=== PATIENT | female | born 1980 | race Caucasian/White ===

== ENCOUNTER 2021-04-20 16:22 | Inpatient (IN) | payer OTHER ==
[2021-04-20] MEDS ORDERED: Ketorolac Tromethamine 30 MG/ML VIAL ONE (17:10)
[2021-04-20] MEDS ORDERED: Promethazine HCl 25 MG/ML VIAL ONE (17:10)
[2021-04-20] MEDS ORDERED: Dexamethasone 10 MG/ML VIAL ONE (17:10)
[2021-04-20 17:53] LABS: #Neutrophils 1.9 10x3/uL (1.5-8.4); %Lymphocytes 7.6 % (18.0-47.0); %Monocytes 1.9 % (0.0-10.0); Hemoglobin 12.3 g/dL (12.0-15.5); Mean Corpuscular HGB CONC 33.9 g/dL (32.0-36.0); Mean Corpuscular Hemoglobin 30.2 pg (27.0-33.0); Mean Corpuscular Volume 89.2 fl (81.6-98.3); Mean Platelet Volume 9.9 fl (7.4-10.4); Platelet Count 142 10x3/uL (150-450); RBC Distribution Width 11.9 % (11.5-14.5); Red Blood Cell (RBC) Count 4.07 10x6/uL (3.90-5.03); White Blood Cell (WBC) Count 2.1 10x3/uL (3.5-10.5)
[2021-04-20 17:59] LABS: ALT (SGPT) 37 U/L (8-55); AST (SGOT) 41 U/L (5-34); Albumin 3.3 g/dL (3.5-5.0); Alkaline Phosphatase 85 U/L (40-110); Anion Gap 12 mmol/L (10-20); BUN (Urea Nitrogen) 11 mg/dL (7.0-18.7); Bilirubin, Total 0.3 mg/dL (0.2-1.2); Calc. Creatinine Clearance 0 mL/min (70-130); Calcium 7.9 mg/dL (7.8-10.44); Carbon Dioxide 19 mmol/L (22-29); Chloride 107 mmol/L (98-107); Globulin 2.5 g/dL (2.4-3.5); Glucose 89 mg/dL (70-105); Potassium 3.7 mmol/L (3.5-5.1); Protein, Total 5.8 g/dL (6.0-8.3); Sodium 134 mmol/L (136-145)
[2021-04-20] MEDS ORDERED: Acetaminophen 500 MG TAB ONE (18:41)
[2021-04-20] MEDS ORDERED: Acetaminophen 325 MG TAB PO PRN (20:51)
[2021-04-20] MEDS ORDERED: NS 0.9% w/ 20 MEQ KCL 1,000 ML/1,000 ML BAG IV SCH (21:00)
[2021-04-20] MEDS ORDERED: Cholecalciferol 1,000 UNITS (25 MCG) TAB PO SCH (21:00)
[2021-04-20 21:13] LABS: BHCG - Serum Negative (NEGATIVE); Pregs Control Background? CLEAR/WHITE (CLR/WHITE); Pregs Control Bar Appear? YES (CONTROL BAR)
[2021-04-20] MEDS ORDERED: Ascorbic Acid 500 mg Chewable Tablet PO SCH (23:45)
[2021-04-20] MEDS ORDERED: Aspirin 81 mg Enteric Coated Tablet PO SCH (23:45)
[2021-04-21] MEDS ORDERED: NS 0.9% w/ 20 MEQ KCL 1,000 ML ONE (00:23)
[2021-04-21 01:02] VITALS: BMI 27.4
[2021-04-21] MEDS ORDERED: FLU VACC QS2021-22(6MOS UP)/PF 60 MCG/0.5 ML SYRINGE IM ONE (01:15)
[2021-04-21 04:25] LABS: #Neutrophils 1.6 10x3/uL (1.5-8.4); %Lymphocytes 10.2 % (18.0-47.0); %Monocytes 1.6 % (0.0-10.0); %Neutrophils 87.7 % (40.0-75.0); Hemoglobin 12.9 g/dL (12.0-15.5); Mean Corpuscular HGB CONC 33.3 g/dL (32.0-36.0); Mean Corpuscular Hemoglobin 29.7 pg (27.0-33.0); Mean Corpuscular Volume 89.2 fl (81.6-98.3); Mean Platelet Volume 9.7 fl (7.4-10.4); Platelet Count 153 10x3/uL (150-450); RBC Distribution Width 11.9 % (11.5-14.5); Red Blood Cell (RBC) Count 4.34 10x6/uL (3.90-5.03); White Blood Cell (WBC) Count 1.9 10x3/uL (3.5-10.5)
[2021-04-21 04:43] LABS: Anion Gap 14 mmol/L (10-20); BUN (Urea Nitrogen) 14 mg/dL (7.0-18.7); CRP (Inflammatory) 20.79 mg/dL (= or < 0.5); Calc. Creatinine Clearance 145 mL/min (70-130); Calcium 7.9 mg/dL (7.8-10.44); Carbon Dioxide 19 mmol/L (22-29); Chloride 110 mmol/L (98-107); Glucose 117 mg/dL (70-105); Potassium 4.1 mmol/L (3.5-5.1); Sodium 139 mmol/L (136-145)
[2021-04-21] MEDS ORDERED: Dexamethasone 20 MG/5 ML VIAL SLOW IVP SCH (09:00)
[2021-04-21] MEDS: Ipratropium Bromide 0.06% Nasal Inhaler 15ml EA NARE SCH ×3 (09:00→17:15)
[2021-04-21] MEDS: Mometasone Furoate 120 PUFF 220 MCG INH SCH ×2 (09:06→20:41)
[2021-04-21] MEDS ORDERED: REMDESIVIR 200 MG in Sodium Chloride 0.9% 250 ML 210 ML IV SCH (09:30)
[2021-04-21] MEDS: Zinc Sulfate 220 MG CAP PO SCH (09:33)
[2021-04-21] MEDS: Guaifenesin DM 100-10/5 ML UDCUP PO PRN (09:33)
[2021-04-21] MEDS: Benzonatate 100 MG CAP PO PRN ×2 (09:33→19:44)
[2021-04-21] MEDS: Aspirin 81 mg Enteric Coated Tablet PO SCH (09:33)
[2021-04-21] MEDS: Ascorbic Acid 500 mg Chewable Tablet PO SCH (09:34)
[2021-04-21] MEDS: Cholecalciferol 1,000 UNITS (25 MCG) TAB PO SCH (09:34)
[2021-04-21] MEDS: Enoxaparin Sodium 40 MG/0.4 ML SYRINGE SC SCH (09:34)
[2021-04-21] MEDS ORDERED: diphenhydrAMINE 25 MG CAP PO PRN (11:04)
[2021-04-21] MEDS ORDERED: Cepastat Lozenges 1 LOZ PO PRN (11:04)
[2021-04-21] MEDS ORDERED: Acetaminophen 500 MG TAB PO PRN (11:04)
[2021-04-21] MEDS ORDERED: Ondansetron PF 4 MG/2 ML Vial IVP PRN (11:04)
[2021-04-21] MEDS ORDERED: Loratadine 10 MG TAB PO PRN (11:04)
[2021-04-21] MEDS ORDERED: Senokot S 8.6-50 MG TAB PO PRN (11:04)
[2021-04-21] MEDS ORDERED: Ondansetron ODT 4 MG TAB PO PRN (11:04)
[2021-04-21] MEDS ORDERED: Loperamide HCl 2 MG CAP PO PRN (11:04)
[2021-04-21] MEDS ORDERED: hydrALAZINE 20 MG/ML VIAL SLOW IVP PRN (11:04)
[2021-04-21] MEDS ORDERED: Labetalol HCl 100 MG/20 ML VIAL SLOW IVP PRN (11:04)
[2021-04-21] MEDS ORDERED: Sodium Chloride 0.65% Nasal 44 ML BOT EA NARE PRN (11:04)
[2021-04-21] MEDS ORDERED: Tiotropium Bromide 4 GM INHALER IH SCH (11:30)
[2021-04-21] MEDS ORDERED: [UNRECOGNIZED DRUG - OTHER] IVPB PRN (12:07)
[2021-04-21] MEDS ORDERED: Furosemide 40 MG/4 ML VIAL SLOW IVP SCH (12:15)
[2021-04-21] MEDS: HYDROcodone/Acetaminophen 5/325 mg Tablet PO SCH ×2 (13:05→13:24)
[2021-04-21 13:23] LABS: Actual Bicarbonate (HCO3a) 18.2 mEq/L (22-28); Base Excess (BEa) -4.5 mEq/L (-2.0 to +3.0); CO2 Tension 27.4 mmHg (35.0-45.0); Calcium, Ionized (arterial) 1.09 mmol/L (1.12-1.30); Carboxyhemoglobin (COHb) 0.1 gm% (0.0-3.0); Hemoglobin (Hb) 13.7 g/dL (12.0-16.0); O2 Tension (PaO2), arterial 193.5 mmHg (80.0-100.0); Potassium - ABG Lab 3.9 mmol/L (3.70-5.30); Puncture Site RRA; pH, Arterial 7.44 (7.35-7.45)
[2021-04-21] MEDS: Morphine 4 MG/ML VIAL SLOW IVP PRN ×3 (15:30→23:53)
[2021-04-21 16:02] LABS: Legionella Urinary Ag Negative (Negative); Strep pneumo Urine Ag NEGATIVE (NEGATIVE)
[2021-04-21] MEDS: Dexamethasone 20 MG/5 ML VIAL SLOW IVP SCH (19:40)
[2021-04-21] MEDS: Promethazine HCl 12.5 MG in Sodium Chloride 0.9% 50 ML IVPB PRN (20:05)
[2021-04-22 03:40] LABS: #Monocytes 0.1 10x3/uL (0.0-1.1); %Monocytes 4.2 % (0.0-10.0); %Neutrophils 89.2 % (40.0-75.0); Mean Corpuscular HGB CONC 34.1 g/dL (32.0-36.0); Mean Corpuscular Hemoglobin 30.2 pg (27.0-33.0); Mean Corpuscular Volume 88.6 fl (81.6-98.3); Mean Platelet Volume 9.5 fl (7.4-10.4); Platelet Count 226 10x3/uL (150-450); White Blood Cell (WBC) Count 3.3 10x3/uL (3.5-10.5)
[2021-04-22 03:48] LABS: ALT (SGPT) 30 U/L (8-55); AST (SGOT) 29 U/L (5-34); Albumin 3.3 g/dL (3.5-5.0); Alkaline Phosphatase 82 U/L (40-110); Anion Gap 15 mmol/L (10-20); BUN (Urea Nitrogen) 19 mg/dL (7.0-18.7); Bilirubin, Direct 0.1 mg/dL (0.1-0.3); Bilirubin, Total 0.3 mg/dL (0.2-1.2); Calc. Creatinine Clearance 131 mL/min (70-130); Calcium 8.1 mg/dL (7.8-10.44); Carbon Dioxide 22 mmol/L (22-29); Chloride 107 mmol/L (98-107); Globulin 2.5 g/dL (2.4-3.5); Glucose 128 mg/dL (70-105); Potassium 3.8 mmol/L (3.5-5.1); Protein, Total 5.8 g/dL (6.0-8.3); Sodium 140 mmol/L (136-145)
[2021-04-22 03:54] LABS: Magnesium 2.4 mg/dL (1.6-2.6); Phosphorus 2.6 mg/dL (2.3-4.7)
[2021-04-22] MEDS: Morphine 4 MG/ML VIAL SLOW IVP PRN ×4 (04:48→16:38)
[2021-04-22] MEDS: Mometasone Furoate 120 PUFF 220 MCG INH SCH ×2 (07:30→19:50)
[2021-04-22] MEDS: Promethazine HCl 12.5 MG in Sodium Chloride 0.9% 50 ML IVPB PRN ×2 (07:37→16:56)
[2021-04-22] MEDS: Dexamethasone 20 MG/5 ML VIAL SLOW IVP SCH ×2 (07:55→20:53)
[2021-04-22] MEDS: Enoxaparin Sodium 40 MG/0.4 ML SYRINGE SC SCH (07:55)
[2021-04-22] MEDS: Zinc Sulfate 220 MG CAP PO SCH (07:56)
[2021-04-22] MEDS: Ascorbic Acid 500 mg Chewable Tablet PO SCH (07:56)
[2021-04-22] MEDS: Cholecalciferol 1,000 UNITS (25 MCG) TAB PO SCH (07:56)
[2021-04-22] MEDS: Benzonatate 100 MG CAP PO PRN ×2 (07:57→16:39)
[2021-04-22] MEDS: Ipratropium Bromide 0.06% Nasal Inhaler 15ml EA NARE SCH (08:13)
[2021-04-22] MEDS: Tiotropium Bromide 4 GM INHALER IH SCH (08:13)
[2021-04-22 08:30] LABS: Actual Bicarbonate (HCO3a) 24.4 mEq/L (22-28); Base Excess (BEa) 0.3 mEq/L (-2.0 to +3.0); CO2 Tension 37.8 mmHg (35.0-45.0); Calcium, Ionized (arterial) 1.12 mmol/L (1.12-1.30); Carboxyhemoglobin (COHb) 0.3 gm% (0.0-3.0); Hemoglobin (Hb) 13.5 g/dL (12.0-16.0); O2 Tension (PaO2), arterial 66.8 mmHg (80.0-100.0); Potassium - ABG Lab 3.9 mmol/L (3.70-5.30); Puncture Site LRA; pH, Arterial 7.43 (7.35-7.45)
[2021-04-22] MEDS: Aspirin 81 mg Enteric Coated Tablet PO SCH (09:11)
[2021-04-22] MEDS: REMDESIVIR 100 MG in Sodium Chloride 0.9% 250 ML 230 ML IV SCH (11:14)
[2021-04-22] MEDS: BARICITINIB 2 MG TAB PO SCH (16:41)
[2021-04-22] MEDS: Ventolin HFA Inhaler 60 PUFF INHALER INH PRN (21:45)
[2021-04-23] MEDS: Morphine 4 MG/ML VIAL SLOW IVP PRN ×3 (01:38→16:07)
[2021-04-23] MEDS: Promethazine 25 MG TAB PO PRN ×2 (01:38→18:54)
[2021-04-23 03:48] LABS: #Monocytes 0.2 10x3/uL (0.0-1.1); #Neutrophils 1.8 10x3/uL (1.5-8.4); %Lymphocytes 8.6 % (18.0-47.0); %Monocytes 7.1 % (0.0-10.0); %Neutrophils 83.8 % (40.0-75.0); Hemoglobin 12.3 g/dL (12.0-15.5); Mean Corpuscular HGB CONC 33.3 g/dL (32.0-36.0); Mean Corpuscular Hemoglobin 30.1 pg (27.0-33.0); Mean Corpuscular Volume 90.2 fl (81.6-98.3); Mean Platelet Volume 9.4 fl (7.4-10.4); Platelet Count 245 10x3/uL (150-450); RBC Distribution Width 11.8 % (11.5-14.5); Red Blood Cell (RBC) Count 4.09 10x6/uL (3.90-5.03); White Blood Cell (WBC) Count 2.1 10x3/uL (3.5-10.5)
[2021-04-23 04:11] LABS: ALT (SGPT) 24 U/L (8-55); AST (SGOT) 18 U/L (5-34); Albumin 3.3 g/dL (3.5-5.0); Alkaline Phosphatase 69 U/L (40-110); Anion Gap 13 mmol/L (10-20); BUN (Urea Nitrogen) 22 mg/dL (7.0-18.7); Bilirubin, Direct 0.2 mg/dL (0.1-0.3); Bilirubin, Total 0.4 mg/dL (0.2-1.2); Calc. Creatinine Clearance 150 mL/min (70-130); Calcium 7.7 mg/dL (7.8-10.44); Carbon Dioxide 26 mmol/L (22-29); Chloride 106 mmol/L (98-107); Globulin 1.7 g/dL (2.4-3.5); Glucose 139 mg/dL (70-105); Potassium 4.4 mmol/L (3.5-5.1); Sodium 141 mmol/L (136-145)
[2021-04-23] MEDS: Mometasone Furoate 120 PUFF 220 MCG INH SCH ×2 (08:05→19:53)
[2021-04-23] MEDS: Ascorbic Acid 500 mg Chewable Tablet PO SCH (09:42)
[2021-04-23] MEDS: Cholecalciferol 1,000 UNITS (25 MCG) TAB PO SCH (09:42)
[2021-04-23] MEDS: Aspirin 81 mg Enteric Coated Tablet PO SCH (09:42)
[2021-04-23] MEDS: Zinc Sulfate 220 MG CAP PO SCH (09:42)
[2021-04-23] MEDS: Enoxaparin Sodium 40 MG/0.4 ML SYRINGE SC SCH (09:43)
[2021-04-23] MEDS: Dexamethasone 20 MG/5 ML VIAL SLOW IVP SCH (09:43)
[2021-04-23] MEDS: REMDESIVIR 100 MG in Sodium Chloride 0.9% 250 ML 230 ML IV SCH (09:44)
[2021-04-23] MEDS: Tiotropium Bromide 4 GM INHALER IH SCH (10:16)
[2021-04-23] MEDS: Promethazine HCl 12.5 MG in Sodium Chloride 0.9% 50 ML IVPB PRN (10:46)
[2021-04-23] MEDS: Benzonatate 100 MG CAP PO PRN ×2 (10:47→18:30)
[2021-04-23] MEDS: Ipratropium Bromide 0.06% Nasal Inhaler 15ml EA NARE SCH ×4 (11:27→17:14)
[2021-04-23] MEDS: BARICITINIB 2 MG TAB PO SCH (15:49)
[2021-04-23] MEDS ORDERED: Acetaminophen 500 MG TAB PO PRN (16:24)
[2021-04-23] MEDS: Morphine IR 10 MG/5 ML UDCUP PO PRN (20:48)
[2021-04-23] MEDS: Escitalopram Oxalate 10 mg Tablet PO SCH (20:49)
[2021-04-24 04:25] LABS: #Monocytes 0.2 10x3/uL (0.0-1.1); %Basophils 0.2 % (0.0-2.0); %Lymphocytes 5.3 % (18.0-47.0); %Monocytes 5.1 % (0.0-10.0); %Neutrophils 88.7 % (40.0-75.0); Hemoglobin 12.8 g/dL (12.0-15.5); Mean Corpuscular HGB CONC 32.7 g/dL (32.0-36.0); Mean Corpuscular Hemoglobin 29.7 pg (27.0-33.0); Mean Platelet Volume 9.5 fl (7.4-10.4); Platelet Count 258 10x3/uL (150-450); RBC Distribution Width 11.5 % (11.5-14.5); Red Blood Cell (RBC) Count 4.31 10x6/uL (3.90-5.03); White Blood Cell (WBC) Count 4.6 10x3/uL (3.5-10.5)
[2021-04-24 04:48] LABS: ALT (SGPT) 20 U/L (8-55); AST (SGOT) 15 U/L (5-34); Albumin 3.2 g/dL (3.5-5.0); Alkaline Phosphatase 61 U/L (40-110); Anion Gap 13 mmol/L (10-20); BUN (Urea Nitrogen) 24 mg/dL (7.0-18.7); Bilirubin, Direct 0.2 mg/dL (0.1-0.3); Bilirubin, Total 0.5 mg/dL (0.2-1.2); Calc. Creatinine Clearance 153 mL/min (70-130); Carbon Dioxide 26 mmol/L (22-29); Chloride 105 mmol/L (98-107); Globulin 2.1 g/dL (2.4-3.5); Glucose 102 mg/dL (70-105); Potassium 4.2 mmol/L (3.5-5.1); Protein, Total 5.3 g/dL (6.0-8.3); Sodium 140 mmol/L (136-145)
[2021-04-24] MEDS: Morphine IR 10 MG/5 ML UDCUP PO PRN (05:04)
[2021-04-24] MEDS: Mometasone Furoate 120 PUFF 220 MCG INH SCH ×2 (07:48→19:59)
[2021-04-24] MEDS: Cholecalciferol 1,000 UNITS (25 MCG) TAB PO SCH (08:22)
[2021-04-24] MEDS: Aspirin 81 mg Enteric Coated Tablet PO SCH (08:22)
[2021-04-24] MEDS: Ascorbic Acid 500 mg Chewable Tablet PO SCH (08:22)
[2021-04-24] MEDS: Zinc Sulfate 220 MG CAP PO SCH (08:22)
[2021-04-24] MEDS: Ipratropium Bromide 0.06% Nasal Inhaler 15ml EA NARE SCH ×5 (08:23→22:42)
[2021-04-24] MEDS: Enoxaparin Sodium 40 MG/0.4 ML SYRINGE SC SCH (08:24)
[2021-04-24] MEDS: Lorazepam 0.5 MG TAB PO PRN ×2 (08:57→20:53)
[2021-04-24] MEDS: Promethazine 25 MG TAB PO PRN (08:57)
[2021-04-24] MEDS ORDERED: Dexamethasone 20 MG/5 ML VIAL SLOW IVP SCH (09:00)
[2021-04-24] MEDS: Tiotropium Bromide 4 GM INHALER IH SCH (10:16)
[2021-04-24] MEDS: REMDESIVIR 100 MG in Sodium Chloride 0.9% 250 ML 230 ML IV SCH (10:17)
[2021-04-24 11:45] LABS: Lactic Acid 0.9 mmol/L (0.5-2.2)
[2021-04-24] MEDS ORDERED: Lidocaine 2% Viscous Solution 10 ML, Aluminum & Magnesium Hydroxide 30 ML SSW SCH (12:30)
[2021-04-24] MEDS ORDERED: Furosemide 20 MG/2 ML VIAL SLOW IVP SCH (15:00)
[2021-04-24] MEDS: BARICITINIB 2 MG TAB PO SCH (15:34)
[2021-04-24] MEDS: Famotidine 20 MG TAB PO SCH (20:34)
[2021-04-24] MEDS: Dexamethasone 20 MG/5 ML VIAL SLOW IVP SCH (20:34)
[2021-04-24] MEDS: Escitalopram Oxalate 10 mg Tablet PO SCH (20:34)
[2021-04-25] MEDS: Guaifenesin DM 100-10/5 ML UDCUP PO PRN (01:50)
[2021-04-25 03:08] LABS: #Monocytes 0.1 10x3/uL (0.0-1.1); #Neutrophils 3.7 10x3/uL (1.5-8.4); %Monocytes 2.8 % (0.0-10.0); %Neutrophils 93.2 % (40.0-75.0); Hemoglobin 12.9 g/dL (12.0-15.5); Mean Corpuscular HGB CONC 33.4 g/dL (32.0-36.0); Mean Corpuscular Hemoglobin 29.9 pg (27.0-33.0); Mean Corpuscular Volume 89.4 fl (81.6-98.3); Mean Platelet Volume 9.6 fl (7.4-10.4); Platelet Count 269 10x3/uL (150-450); RBC Distribution Width 11.2 % (11.5-14.5); Red Blood Cell (RBC) Count 4.32 10x6/uL (3.90-5.03)
[2021-04-25 04:50] LABS: ALT (SGPT) 17 U/L (8-55); AST (SGOT) 17 U/L (5-34); Albumin 3.4 g/dL (3.5-5.0); Alkaline Phosphatase 57 U/L (40-110); Anion Gap 16 mmol/L (10-20); BUN (Urea Nitrogen) 22 mg/dL (7.0-18.7); Bilirubin, Direct 0.4 mg/dL (0.1-0.3); Bilirubin, Total 0.8 mg/dL (0.2-1.2); Calc. Creatinine Clearance 150 mL/min (70-130); Calcium 8.2 mg/dL (7.8-10.44); Carbon Dioxide 23 mmol/L (22-29); Chloride 101 mmol/L (98-107); Globulin 2.5 g/dL (2.4-3.5); Glucose 139 mg/dL (70-105); Potassium 4.4 mmol/L (3.5-5.1); Protein, Total 5.9 g/dL (6.0-8.3); Sodium 136 mmol/L (136-145)
[2021-04-25] MEDS: Lorazepam 0.5 MG TAB PO PRN (05:36)
[2021-04-25] MEDS ORDERED: REMDESIVIR 100 MG in Sodium Chloride 0.9% 250 ML 230 ML IV SCH (06:00)
[2021-04-25] MEDS: Ipratropium Bromide 0.06% Nasal Inhaler 15ml EA NARE SCH ×6 (08:29→17:14)
[2021-04-25] MEDS: Cholecalciferol 1,000 UNITS (25 MCG) TAB PO SCH (08:30)
[2021-04-25] MEDS: Dexamethasone 20 MG/5 ML VIAL SLOW IVP SCH ×2 (08:30→20:00)
[2021-04-25] MEDS: Ascorbic Acid 500 mg Chewable Tablet PO SCH (08:30)
[2021-04-25] MEDS: Famotidine 20 MG TAB PO SCH ×2 (08:30→20:00)
[2021-04-25] MEDS: Aspirin 81 mg Enteric Coated Tablet PO SCH (08:30)
[2021-04-25] MEDS: Zinc Sulfate 220 MG CAP PO SCH (08:30)
[2021-04-25] MEDS: Enoxaparin Sodium 40 MG/0.4 ML SYRINGE SC SCH (08:31)
[2021-04-25] MEDS: Mometasone Furoate 120 PUFF 220 MCG INH SCH ×2 (08:35→19:45)
[2021-04-25] MEDS: Tiotropium Bromide 4 GM INHALER IH SCH (08:37)
[2021-04-25] MEDS: BARICITINIB 2 MG TAB PO SCH (15:13)
[2021-04-25] MEDS ORDERED: Lactated Ringer's 1,000 ML IV SCH (19:15)
[2021-04-25] MEDS: Escitalopram Oxalate 10 mg Tablet PO SCH (20:00)
[2021-04-25] MEDS: Ventolin HFA Inhaler 60 PUFF INHALER INH PRN (21:16)
[2021-04-26] MEDS: Ipratropium Bromide 0.06% Nasal Inhaler 15ml EA NARE SCH ×2 (06:37→10:21)
[2021-04-26] MEDS: Mometasone Furoate 120 PUFF 220 MCG INH SCH ×2 (07:11→18:45)
[2021-04-26] MEDS: Ventolin HFA Inhaler 60 PUFF INHALER INH PRN ×2 (07:13→18:44)
[2021-04-26] MEDS: Ascorbic Acid 500 mg Chewable Tablet PO SCH (08:51)
[2021-04-26] MEDS: Aspirin 81 mg Enteric Coated Tablet PO SCH (08:51)
[2021-04-26] MEDS: Benzonatate 100 MG CAP PO PRN ×2 (08:51→16:11)
[2021-04-26] MEDS: Guaifenesin DM 100-10/5 ML UDCUP PO PRN (08:51)
[2021-04-26] MEDS: Dexamethasone 20 MG/5 ML VIAL SLOW IVP SCH (08:52)
[2021-04-26] MEDS: Cholecalciferol 1,000 UNITS (25 MCG) TAB PO SCH (08:52)
[2021-04-26] MEDS: Famotidine 20 MG TAB PO SCH ×2 (08:54→20:45)
[2021-04-26] MEDS: Enoxaparin Sodium 40 MG/0.4 ML SYRINGE SC SCH (08:54)
[2021-04-26] MEDS: Zinc Sulfate 220 MG CAP PO SCH (08:54)
[2021-04-26] MEDS: Tiotropium Bromide 4 GM INHALER IH SCH (10:00)
[2021-04-26 10:35] LABS: Actual Bicarbonate (HCO3a) 26.6 mEq/L (22-28); Base Excess (BEa) 1.2 mEq/L (-2.0 to +3.0); CO2 Tension 44.9 mmHg (35.0-45.0); Calcium, Ionized (arterial) 1.15 mmol/L (1.12-1.30); Hemoglobin (Hb) 14.3 g/dL (12.0-16.0); O2 Tension (PaO2), arterial 110.9 mmHg (80.0-100.0); Potassium - ABG Lab 4.1 mmol/L (3.70-5.30); Puncture Site LRA; pH, Arterial 7.39 (7.35-7.45)
[2021-04-26 10:40] LABS: ALV-art Gradient 545.975 mmHg (0-20)
[2021-04-26] MEDS: Lorazepam 0.5 MG TAB PO PRN (10:59)
[2021-04-26] MEDS: BARICITINIB 2 MG TAB PO SCH (15:45)
[2021-04-26] MEDS: Escitalopram Oxalate 10 mg Tablet PO SCH (20:45)
[2021-04-27] MEDS: Lorazepam 0.5 MG TAB PO PRN ×3 (02:52→20:44)
[2021-04-27 04:40] LABS: Anion Gap 13 mmol/L (10-20); BUN (Urea Nitrogen) 23 mg/dL (7.0-18.7); Calc. Creatinine Clearance 155 mL/min (70-130); Calcium 8.3 mg/dL (7.8-10.44); Carbon Dioxide 25 mmol/L (22-29); Chloride 104 mmol/L (98-107); Glucose 92 mg/dL (70-105); Potassium 4.1 mmol/L (3.5-5.1); Sodium 138 mmol/L (136-145)
[2021-04-27] MEDS: Tiotropium Bromide 4 GM INHALER IH SCH (08:50)
[2021-04-27] MEDS: Mometasone Furoate 120 PUFF 220 MCG INH SCH ×3 (08:50→20:19)
[2021-04-27] MEDS: Ventolin HFA Inhaler 60 PUFF INHALER INH PRN ×2 (08:50→20:16)
[2021-04-27] MEDS: Ascorbic Acid 500 mg Chewable Tablet PO SCH (08:59)
[2021-04-27] MEDS: Aspirin 81 mg Enteric Coated Tablet PO SCH (08:59)
[2021-04-27] MEDS: Dexamethasone 20 MG/5 ML VIAL SLOW IVP SCH (09:00)
[2021-04-27] MEDS: Famotidine 20 MG TAB PO SCH ×2 (09:01→20:44)
[2021-04-27] MEDS: Zinc Sulfate 220 MG CAP PO SCH (09:01)
[2021-04-27] MEDS: Enoxaparin Sodium 40 MG/0.4 ML SYRINGE SC SCH (09:01)
[2021-04-27] MEDS: Cholecalciferol 1,000 UNITS (25 MCG) TAB PO SCH (09:01)
[2021-04-27] MEDS: Acetaminophen 500 MG TAB PO PRN (11:13)
[2021-04-27 11:58] LABS: #Monocytes 0.2 10x3/uL (0.0-1.1); #Neutrophils 10.9 10x3/uL (1.5-8.4); %Basophils 0.2 % (0.0-2.0); %Eosinophils 0.2 % (0.0-6.0); %Lymphocytes 0.6 % (18.0-47.0); %Monocytes 1.6 % (0.0-10.0); %Neutrophils 96.4 % (40.0-75.0); Hemoglobin 14.1 g/dL (12.0-15.5); Mean Corpuscular HGB CONC 33.3 g/dL (32.0-36.0); Mean Corpuscular Hemoglobin 29.4 pg (27.0-33.0); Mean Corpuscular Volume 88.5 fl (81.6-98.3); Mean Platelet Volume 9.7 fl (7.4-10.4); Platelet Count 341 10x3/uL (150-450); RBC Distribution Width 11.5 % (11.5-14.5); Red Blood Cell (RBC) Count 4.79 10x6/uL (3.90-5.03); White Blood Cell (WBC) Count 11.3 10x3/uL (3.5-10.5)
[2021-04-27] MEDS: BARICITINIB 2 MG TAB PO SCH (16:00)
[2021-04-27] MEDS: Escitalopram Oxalate 10 mg Tablet PO SCH (20:44)
[2021-04-27] MEDS: Ipratropium Bromide 0.06% Nasal Inhaler 15ml EA NARE SCH ×2 (20:44)
[2021-04-28 05:02] LABS: #Eosinphils 0.1 10x3/uL (0.0-0.5); #Monocytes 0.2 10x3/uL (0.0-1.1); #Neutrophils 5.2 10x3/uL (1.5-8.4); %Basophils 0.3 % (0.0-2.0); %Eosinophils 1.9 % (0.0-6.0); %Lymphocytes 4.3 % (18.0-47.0); %Monocytes 3.2 % (0.0-10.0); %Neutrophils 88.4 % (40.0-75.0); Hemoglobin 13.7 g/dL (12.0-15.5); Mean Corpuscular HGB CONC 34.2 g/dL (32.0-36.0); Mean Corpuscular Hemoglobin 30.2 pg (27.0-33.0); Mean Corpuscular Volume 88.3 fl (81.6-98.3); Mean Platelet Volume 10.1 fl (7.4-10.4); Platelet Count 329 10x3/uL (150-450); RBC Distribution Width 11.6 % (11.5-14.5); Red Blood Cell (RBC) Count 4.54 10x6/uL (3.90-5.03); White Blood Cell (WBC) Count 5.9 10x3/uL (3.5-10.5)
[2021-04-28 05:20] LABS: ALT (SGPT) 20 U/L (8-55); AST (SGOT) 17 U/L (5-34); Albumin 3.3 g/dL (3.5-5.0); Alkaline Phosphatase 56 U/L (40-110); Anion Gap 13 mmol/L (10-20); BUN (Urea Nitrogen) 20 mg/dL (7.0-18.7); Bilirubin, Direct 0.4 mg/dL (0.1-0.3); Bilirubin, Total 0.9 mg/dL (0.2-1.2); Calc. Creatinine Clearance 139 mL/min (70-130); Calcium 8.6 mg/dL (7.8-10.44); Carbon Dioxide 28 mmol/L (22-29); Chloride 102 mmol/L (98-107); Globulin 2.6 g/dL (2.4-3.5); Glucose 106 mg/dL (70-105); Potassium 4.5 mmol/L (3.5-5.1); Protein, Total 5.9 g/dL (6.0-8.3); Sodium 138 mmol/L (136-145)
[2021-04-28] MEDS: Lorazepam 0.5 MG TAB PO PRN ×3 (07:00→20:35)
[2021-04-28] MEDS: Mometasone Furoate 120 PUFF 220 MCG INH SCH ×2 (07:14→20:07)
[2021-04-28] MEDS ORDERED: Nitroglycerin 0.4 MG TAB (25 Tab Bottle) ONE (07:45)
[2021-04-28 08:31] LABS: Troponin I Less than 0.010 ng/mL (< 0.028)
[2021-04-28] MEDS: Ascorbic Acid 500 mg Chewable Tablet PO SCH (08:31)
[2021-04-28] MEDS: Enoxaparin Sodium 40 MG/0.4 ML SYRINGE SC SCH (08:31)
[2021-04-28] MEDS: Cholecalciferol 1,000 UNITS (25 MCG) TAB PO SCH (08:32)
[2021-04-28] MEDS: Famotidine 20 MG TAB PO SCH ×2 (08:32→20:14)
[2021-04-28] MEDS: Zinc Sulfate 220 MG CAP PO SCH (08:32)
[2021-04-28] MEDS: Dexamethasone 20 MG/5 ML VIAL SLOW IVP SCH (08:32)
[2021-04-28] MEDS: Aspirin 81 mg Enteric Coated Tablet PO SCH (08:32)
[2021-04-28] MEDS: Ipratropium Bromide 0.06% Nasal Inhaler 15ml EA NARE SCH (08:52)
[2021-04-28] MEDS: Acetaminophen 500 MG TAB PO PRN (10:21)
[2021-04-28] MEDS: BARICITINIB 2 MG TAB PO SCH (16:19)
[2021-04-28] MEDS: Tiotropium Bromide 4 GM INHALER IH SCH (18:35)
[2021-04-28] MEDS: Ventolin HFA Inhaler 60 PUFF INHALER INH PRN (20:07)
[2021-04-28] MEDS: Benzonatate 100 MG CAP PO PRN (20:14)
[2021-04-28] MEDS: Escitalopram Oxalate 10 mg Tablet PO SCH (20:14)
[2021-04-29] MEDS: Enoxaparin Sodium 40 MG/0.4 ML SYRINGE SC SCH (08:25)
[2021-04-29] MEDS: Dexamethasone 20 MG/5 ML VIAL SLOW IVP SCH (08:25)
[2021-04-29] MEDS: Ascorbic Acid 500 mg Chewable Tablet PO SCH (08:26)
[2021-04-29] MEDS: Zinc Sulfate 220 MG CAP PO SCH (08:26)
[2021-04-29] MEDS: Famotidine 20 MG TAB PO SCH ×2 (08:26→21:11)
[2021-04-29] MEDS: Cholecalciferol 1,000 UNITS (25 MCG) TAB PO SCH (08:26)
[2021-04-29] MEDS: Aspirin 81 mg Enteric Coated Tablet PO SCH (08:27)
[2021-04-29] MEDS: Benzonatate 100 MG CAP PO PRN ×3 (08:27→21:15)
[2021-04-29] MEDS: Mometasone Furoate 120 PUFF 220 MCG INH SCH ×2 (09:05→17:40)
[2021-04-29] MEDS: Tiotropium Bromide 4 GM INHALER IH SCH (09:06)
[2021-04-29] MEDS: Lorazepam 0.5 MG TAB PO PRN ×2 (09:13→17:45)
[2021-04-29] MEDS: BARICITINIB 2 MG TAB PO SCH (17:45)
[2021-04-29] MEDS: Escitalopram Oxalate 10 mg Tablet PO SCH (21:11)
[2021-04-29] MEDS: Melatonin 3 MG TAB PO PRN (21:15)
[2021-04-30] MEDS: Mometasone Furoate 120 PUFF 220 MCG INH SCH ×2 (07:28→19:17)
[2021-04-30] MEDS: Tiotropium Bromide 4 GM INHALER IH SCH (07:29)
[2021-04-30] MEDS: Enoxaparin Sodium 40 MG/0.4 ML SYRINGE SC SCH (08:55)
[2021-04-30] MEDS: Dexamethasone 20 MG/5 ML VIAL SLOW IVP SCH (08:55)
[2021-04-30] MEDS: Zinc Sulfate 220 MG CAP PO SCH (08:55)
[2021-04-30] MEDS: Ascorbic Acid 500 mg Chewable Tablet PO SCH (08:55)
[2021-04-30] MEDS: Cholecalciferol 1,000 UNITS (25 MCG) TAB PO SCH (08:55)
[2021-04-30] MEDS: Aspirin 81 mg Enteric Coated Tablet PO SCH (08:55)
[2021-04-30] MEDS: Famotidine 20 MG TAB PO SCH ×2 (08:55→20:06)
[2021-04-30] MEDS: BARICITINIB 2 MG TAB PO SCH (16:43)
[2021-04-30] MEDS: Lorazepam 0.5 MG TAB PO PRN (16:43)
[2021-04-30] MEDS: Benzonatate 100 MG CAP PO PRN (20:06)
[2021-04-30] MEDS: Escitalopram Oxalate 10 mg Tablet PO SCH (20:06)
[2021-04-30] MEDS: Melatonin 3 MG TAB PO PRN (20:06)
[2021-05-01] MEDS: Mometasone Furoate 120 PUFF 220 MCG INH SCH (08:15)
[2021-05-01] MEDS: Tiotropium Bromide 4 GM INHALER IH SCH (08:16)
[2021-05-01] MEDS: Enoxaparin Sodium 40 MG/0.4 ML SYRINGE SC SCH (10:04)
[2021-05-01] MEDS: Zinc Sulfate 220 MG CAP PO SCH (10:04)
[2021-05-01] MEDS: Famotidine 20 MG TAB PO SCH (10:04)
[2021-05-01] MEDS: Aspirin 81 mg Enteric Coated Tablet PO SCH (10:04)
[2021-05-01] MEDS: Dexamethasone 20 MG/5 ML VIAL SLOW IVP SCH (10:04)
[2021-05-01] MEDS: Cholecalciferol 1,000 UNITS (25 MCG) TAB PO SCH (10:05)
[2021-05-01] MEDS: Ascorbic Acid 500 mg Chewable Tablet PO SCH (10:05)
[2021-05-01] MEDS: Benzonatate 100 MG CAP PO PRN (10:17)
[2021-05-01 12:46] VITALS: BP 121/74; TEMP 95.9
[2021-05-01] MEDS: BARICITINIB 2 MG TAB PO SCH (16:53)
== END 2021-05-01 18:20 | disposition home or self-care (01) | DRG 177 ==
LOC: CSHERS 16:22 → UNDOADMIN 17:14 → CSHERHOLD 17:14 → CSHTELE 23:39 → CSHIMCU 04-21 15:08 → CSHTELE 04-28 19:15
PROVIDERS: ADMIT Family Medicine; ATTEND Hospitalist
PROC: 8E0ZXY6 Isolation (ICD-10-PCS; 2021-04-20)
PROC: XW033E5 Introduction of Remdesivir Anti-infective into Peripheral Vein, Percutaneous Approach, New Technology Group 5 (ICD-10-PCS; principal; 2021-04-21)
PROC: 3E0333Z Introduction of Anti-inflammatory into Peripheral Vein, Percutaneous Approach (ICD-10-PCS; 2021-04-21)
PROC: XW0DXM6 Introduction of Baricitinib into Mouth and Pharynx, External Approach, New Technology Group 6 (ICD-10-PCS; 2021-04-22)
DX: U07.1 COVID-19 (principal); J12.82 Pneumonia due to coronavirus disease 2019; J96.01 Acute respiratory failure with hypoxia; D69.6 Thrombocytopenia, unspecified; F41.9 Anxiety disorder, unspecified; R10.9 Unspecified abdominal pain; Z79.899 Other long term (current) drug therapy; Z88.5 Allergy status to narcotic agent; Z88.8 Allergy status to other drugs, medicaments and biological substances
CPT/HCPCS: 36415; 36416; 36600; 71045; 71275; 74175; 80048; 80053; 80076; 82248; 82805; 83605; 83735; 84100; 84145; 84484; 84703; 85025; 85379; 86140; 86141; 87040; 87449; 87899; 93005; 93010; 94667; 94760; 94762; 96374; 96375; J0248; J1100; J1650; J1885; J1940; J2270; J2405; J2550; J3480; J7050; J7120; Q0169

== ENCOUNTER 2022-04-18 14:01 | Outpatient (CLI) | payer OTHER | END 2022-04-18 14:02 | disposition home or self-care (01) | LOC: CSHCP 14:01 | PROVIDERS: ATTEND Student in an Organized Health Care Education/Training Program | DX: R05.3 Chronic cough (principal) | CPT/HCPCS: 94010; 94726; 94729; 94760 ==